=== PATIENT | female | born 1940 ===

== ENCOUNTER 2023-12-09 21:21 | Inpatient (IN) | payer MEDICARE, SELFPAY ==
--- NOTE | ~2023-12-09 | XR_ITS ---
EXAMINATION: XR ABDOMEN KUB CLINICAL INDICATION: Abdominal COMPARISON: None available. TECHNIQUE: AP view of the abdomen. FINDINGS: The bowel gas pattern is normal with no evidence of ileus or obstruction. No unusual soft tissue calcifications are noted. There is mild amount of burden feces in the rectosigmoid region. Postsurgical juwan seen in the right upper quadrant. There is dextroscoliosis of lumbar spine and multilevel degenerative changes. XR/XR KUB IMPRESSION: No acute abnormalities. Mild constipation
[2023-12-09 21:46] VITALS: BMI 28.2
[2023-12-09 22:56] VITALS: BP 147/66; PULSE 66; RESP 17; TEMP 36.2; O2SAT 95
[2023-12-09] MEDS: Acetaminophen 325 MG TABLET 650 MG PO (23:10)
--- NOTE | 2023-12-10 03:01 | PC.NURSE ---
Admission Note Chrystal Cavanaugh, 83 [id number] was past medical history of hypertension, hyperlipidemia, GERD, arthritis, hypothyroidism, and chronic leg pain was presented to ED after she was found in minimally conscious state after ingesting unknown amount and dose of oxycodone tablets as suicidal attempts triggered by her? living situation with constant pain. Patient arrived on [address] at 2135 on 12/09/23 with an admitting diagnosis of Unspecified Depressive disorder (F32.9).? Patient is alert and oriented x 4, signed CV however patient?s daughter Aylin is her HCP. Patient is calm and pleasant, compliant with admission process, reports her depression 5/10, anxiety 4/10, asymptomatic of psychiatric symptoms, denied SI/HI/AVH, contracted for the safety, ambulates with walker but gait is unsteady due to leg pain, reports her bilateral leg pain 10/10, patient has hearing deficit wears hearing aids, patient also wears reading glasses, patient reported her appetite is great, and VSS unremarkable. No visible skin issues noticed, med rec completed/provider notified/pending provider?s approval, patient takes her meds whole with water, pending unit orientation due to tiredness from long drive, and patient is being observed on 15 minutes safety check as ordered. Belongings inventoried/secured. Hospitalist consult order ordered/notified via [employer].
[2023-12-10] MEDS: traMADoL HCL 50 MG TABLET PO (03:08)
--- NOTE | 2023-12-10 04:12 | PC.NURSE ---
Admission Note Chrystal Cavanaugh, 83 [id number] with past medical history of hypertension, hyperlipidemia, GERD, arthritis, hypothyroidism, and chronic leg pain was presented to ED after she was found in minimally conscious state after ingesting unknown amount and dose of Oxycodone tablets as suicidal attempts triggered by her? living situation with constant pain. Patient arrived on [address] at 2135 on 12/09/23 with an admitting diagnosis of Unspecified Depressive disorder (F32.9).? Patient is alert and oriented x 4, signed CV however patient?s daughter Aylin is her HCP. Patient is calm and pleasant, compliant with admission process, reports her depression 5/10, anxiety 4/10, asymptomatic of psychiatric symptoms, denied SI/HI/AVH, contracted for the safety, ambulates with walker but gait is unsteady due to leg pain, reports her bilateral leg pain 10/10, patient has hearing deficit wears hearing aids, patient also wears reading glasses, and VSS unremarkable. No visible skin issues noticed, med rec completed/provider notified/pending provider?s approval, pending unit orientation due to tiredness from long drive, and patient is being observed on 5 minutes safety check as ordered. Patient is full code. Patient has only seasonal allergies.Belongings inventoried/secured. Hospitalist consult order ordered/notified via [employer].
[2023-12-10 06:18] VITALS: BMI 28.1
--- NOTE | 2023-12-10 08:54 | P.HPPS_ITS ---
[facility] Date of Service: 12/10/23 Chief Complaint: Depression Sources of Information: patient interviewed, chart reviewed and crisis/core team assessment reviewed Additional Sources of Information: collateral information gathered from the daughter- Maryjane. HPI Subjective Notes: Zepeda Warning and Conditional Voluntary Narrative: Mrs. Reyes is a 83 year-old woman with hx of MDD, alcohol use disorder who was brought via EMS to [facility] ED on 12/02/23 after daughter found her non responsive and noticed pin point pupils. Daughter Maryjane called ambulance and EMS on arrival administered narcan. Pt also reported daily alcohol use for several years. It does not appear that she was started on CIWA. In the ED, pt reported that she had intentional OD on oxycodone, about 20 tablets as suicide attempt in the context of chronic pain and feeling like she did not want to live like this anymore. CBC showed normocytic anemia, CMP without electrolyte imbalances, BUN 14, Cr. 0.8, slightly elevated CK 363. Suspected she had aspiration pneumonia on chest XR-although she was not started on antibiotics. EKG on 12/[address] abnormality, no significant changes from previous EKGs- per ED documentation. On the unit, pt presented with visible back pain affecting her ability to ambulate as well as sit in chair. She also presents as somewhat guarded and irritable. She reports she feels ashamed and embarrassed about suicide attempt. She reports hse has never had suicidal ideation in her life. She reports she only contemplated OD with oxycodone the day she had the OD. She reports she was ruminating about it all day long until she decided later at night to take about 20 tablets of oxycodone. Her daughter who lives with her found her and called EMS. Pt reports PCP has been prescribing antidepressant. She denies feeling depressed lately only in setting of chronic back pain and arthritis. Pt denies hx of VH/AH or delusions. Collateral information from daughter, Maryjane, who reports pt has been using alcohol, mostly vodka for several decades with little to no periods of sobriety. Daughter reports in the past, when pt was able to work, she was functional alcoholic. Daughter reports Mrs. Reyes has about 3-4 drinks of vodka daily. Daughter reports recently she was told by pain clinic that they were stopping cortisone injections as they were not helping as much. Physical therapy was also stopped due to sense that benefit was minimal. Daughter reports that the day the pt had intentional OD, she had telehealth appointment with her PCP who told her that he will not continue prescribing opioid medications due to pt's ongoing alcohol use disorder. In was in this setting that, pt later decided to OD on oxycodone. Past Psychiatric History: Inpt: none in the past OP: none Past medication trials: celexa. Hx of suicide attempts: denies Medical Evaluation Reviewed: Yes [facility] Medical History (Updated 12/11/23 @ 11:01 by Shahnaz Goldstein) GERD (gastroesophageal reflux disease) Arthritis Hypothyroidism HLD (hyperlipidemia) Asthma HTN (hypertension) Family History: none Social History: Pt lives with daughter. retired. . Substance History: alcohol use daily 4-6 drinks of vodka for several years Trauma History: not disclosed Diagnostics Vital Signs (24Hr): Vital Signs - 24 hr 12/09/23 22:56 Temperature 97.2 F Pulse Rate 66 Respiratory Rate 17 Blood Pressure 147/66 H Pulse Oximetry 95 Oxygen Delivery Method Room Air BMI result Body Mass Index 28.1 Labs 12/10/23 08:58 Meds/Allergies Meds Home Medications ?Medication ?Instructions ?Recorded ?Confirmed ?Type albuterol sulfate 90 mcg/actuation 2 puff inhalation Q4-5H PRN 12/09/23 12/10/23 History aerosol inhaler Shortness Of Breath Or Wheezing amlodipine 2.5 mg tablet 2.5 mg PO DAILY 12/09/23 12/10/23 History atorvastatin 40 mg tablet 40 mg PO DAILY 12/09/23 12/10/23 History citalopram 20 mg tablet 20 mg PO QAM 12/09/23 12/10/23 History fluticasone furoate 100 1 ea inhalation DAILY 12/09/23 12/10/23 History mcg-vilanterol 25 mcg/dose inhalation powder (Breo Ellipta) gabapentin 300 mg capsule 600 mg PO BID 12/09/23 12/10/23 History levothyroxine 100 mcg tablet 100 mcg PO QAM 12/09/23 12/10/23 History omeprazole 20 mg capsule,delayed 20 mg PO DAILY 12/09/23 12/10/23 History release ondansetron 4 mg disintegrating 4 mg PO Q8H PRN nausea 12/09/23 12/10/23 History tablet oxycodone 5 mg tablet 5 mg PO Q6H PRN pain 12/09/23 12/10/23 History pantoprazole 40 mg tablet,delayed 40 mg PO DAILY 12/09/23 12/10/23 History release tramadol 50 mg tablet 50 mg PO Q6H PRN pain 12/09/23 12/10/23 History Allergies Allergies Allergy/AdvReac Type Severity Reaction Status Date / Time Seasonal Allergies Allergy Sneezing Verified 12/09/23 22:37 Mental Status Exam Mental Status Exam Narrative: Appearance: wearing hospital gown, in NAD behavior: guarded and irritable Psychomotor: no agitation or retardation noted Speech: mostly clear, normal rate/rhythm/volume, spontaneous TP: mostly linear TC: complaining of pain and wanting medication for it Mood: in pain and tired Affect: irritable and in pain SI: adamantly denies HI: none VH/AH: none Delusions: none Insight/judgment: poor x 2. Memory/cog: alert, oriented x 3. pending MOCA. Assessment & Plan Assessment & Plan (1) MDD (major depressive disorder), recurrent episode, moderate: Status: Acute Code(s): F33.1 - Major depressive disorder, recurrent, moderate (2) Alcohol use disorder, severe, dependence: Status: Acute Code(s): F10.20 - Alcohol dependence, uncomplicated Plan Mrs. Reyes is a 83 year-old woman with hx of MDD, alcohol use disorder who was brought via EMS to [facility] ED after daughter found her unresponsive and noted she had pin point pupil. EMS administered narcan at the home with good effect. She was transported to ED. In the ED, CBC with normocytic anemia, no leukocitosys. CMP slitghly low potassium, corrected. No ekg abnormalities or changes. It does not seem like pt was started on a CIWA while in the ED- it has been by now 9 days since last drink. continue thiamine. It appears that while at the other hospital, she was switched from celexa to cymbalta. We discussed risks, benefits and alternative treatment options. Daughter and pt asked about CSS treatment after psychiatric stabilization. We also discussed need to coordinate pain management- despite alcohol use status and harm reduction approach. PLAN 1. Admit to S1, CV, 15 minutes checks for safety 2. continue cymbalta- plan to titrate 30mg po BID. 3. aftercare planning. Patient educated on: diagnosis, medication risk/benefits and substance abuse Reason for continued inpatient stay Substantial Risk for: harm to self Statement Statement: I have reviewed the history and physical and performed a pertinent examination on my patient. No changes have occurred unless specified. If the History and Physical was not performed prior to admission, the Hospitalist's service will be consulted for completing the admission physical. Time Spent With Patient Time: Total time managing care of this patient today ____ minutes.
[2023-12-10 09:34] LABS: Estimated Average Glucose 111 mg/dL; Hemoglobin A1c % 5.5 % (<6.0)
[2023-12-10 09:42] LABS: Alanine Aminotransferase 23 U/L (0-31); Albumin Level 3.3 g/dL (3.5-5.0); Alkaline Phosphatase 79 U/L (39-117); Anion Gap 9 (12-20); Aspartate Amino Transferase 19 U/L (5-31); Bilirubin Total 0.2 mg/dL (0.0-1.0); Blood Urea Nitrogen 10 mg/dL (9-16); Calcium 8.5 mg/dL (8.4-10.2); Carbon Dioxide 26 mmol/L (22-29); Chloride 108 mmol/L (96-108); Cholesterol 127 mg/dL (<200); Creatinine Clr Calc Pharmacy 50.8; Estimated Glomerular Filt Rate > 60; Glucose Fasting 92 mg/dL (60-99); HDL Cholesterol 50 mg/dL (>40); LDL Cholesterol Calculated 48 mg/dL (<100); Potassium 4.1 mmol/L (3.3-5.1); Sodium 139 mmol/L (135-145); Total Protein 5.6 g/dL (6.5-8.0); Triglycerides 149 mg/dL (<150)
[2023-12-10 11:00] VITALS: BP 157/70; PULSE 80; TEMP 36.6; O2SAT 99
[2023-12-10] MEDS: Gabapentin 300 MG CAPSULE 600 MG PO ×2 (11:00→20:42)
[2023-12-10] MEDS: amLODIPine Besylate 2.5 MG TABLET PO (11:01)
[2023-12-10] MEDS: Escitalopram Oxalate 10 MG TABLET PO (11:02)
[2023-12-10] MEDS: Levothyroxine Sodium 100 MCG TABLET PO (11:02)
[2023-12-10] MEDS: Omeprazole 20 MG CAPSULE.DR PO (11:02)
[2023-12-10] MEDS: oxyCODONE HCl Immed Release 5 MG TABLET PO ×2 (11:03→20:42)
--- NOTE | 2023-12-10 13:33 | P.CONHOSP_ITS ---
History of Present Illness Data of Consult Service Date: 12/10/23 Primary Care Provider: Unknown Physician HPI Reason for consult: Admission H&P Pt is a 83-year-old female with a PMH significant for?mild intermittent asthma, HTN, HLD, hypothyroidism, arthritis, GERD, who is [facility] after being found minimally responsive at home by daughter. Patient apparently had increasing depression with SI and intentionally overdosed on oxycodone. Responded well to Narcan in the field. Patient apparently has chronic musculoskeletal pain and did not want to live any longer. Medical consult for admission H&P. ?Pt unavailable at time of interview and examination. Review of medical records indicates pt had no acute medical complaints at time of presentation to the ED, though endorsed chronic musculoskeletal and joint pain. Labs reviewed, grossly unremarkable. Vitals indicate mild hypertension up to 157/70, otherwise WNL. Review of Systems 2 Review of Systems: Pt unavailable for interview and exam ON LICENSE OF [facility] Medical History (Updated 12/10/23 @ 14:15 by GITA Allred) GERD (gastroesophageal reflux disease) Arthritis Hypothyroidism HLD (hyperlipidemia) Asthma HTN (hypertension) Social History Household Members: Family Housing: House Do you presently have visiting nurse or other home services: No Patient Tobacco Use Status: Never used Tobacco Smoked in Last 30 Days: No Patient Interested in Nicotine Replacement: No Patient Given Instructions on How to Stop Smoking: No Second Hand Smoke Exposure: No Use of substances other than those prescribed or required for medical reasons: No Currently Displaying Signs/Symptoms of Drug Intoxication Withdrawal: No Have you been hit, kicked, punched, or otherwise hurt by someone within the past year? If so, by whom?: No Do you feel safe in your current relationship?: No Is there a partner from a previous relationship who is making you feel unsafe now?: No Are you made to feel afraid or neglected: No Advance Directives: No Advance Directives Information Provided: No Do you have thoughts of harming others: None Do you have a plan to hurt others: No Plan Recently lost weight without trying: No Eating poorly because of decreased appetite: No Nutrition Risks: No Nutritional Risk Patient : No : No Poor oral hygiene: No Meds Allergies Allergy/AdvReac Type Severity Reaction Status Date / Time Seasonal Allergies Allergy Sneezing Verified 12/09/23 22:37 Active Medications: Current Medications Acetaminophen (Acetaminophen 325 Mg Tablet) 650 mg PO Q6H PRN PRN Reason: Headache/Pain Mild Scale (1-3) Last Admin: 12/09/23 23:10 Dose: 650 mg Al Hydroxide/Mg Hydroxide (Magnesium Hydrox/Alum Hydrox 30 Ml Oral.Susp) 30 ml PO Q6H PRN PRN Reason: Heartburn/Nausea Albuterol Sulfate (Albuterol Sulfate 90 Mcg 8 Gm Inhaler) 2 puff INHALE Q4H PRN PRN Reason: Shortness Of Breath Or Wheezing Amlodipine Besylate (Amlodipine Besylate 2.5 Mg Tablet) 2.5 mg PO DAILY [facility]; Protocol Last Admin: 12/10/23 11:01 Dose: 2.5 mg Atorvastatin Calcium (Atorvastatin Calcium 40 Mg Tablet) 40 mg PO DAILY [facility] Escitalopram Oxalate (Escitalopram Oxalate 10 Mg Tablet) 10 mg PO DAILY [facility] Last Admin: 12/10/23 11:02 Dose: 10 mg Fluticasone/Vilanterol (Fluticasone/Vilanterol 100/25 Blst.W.Dev) 1 puff INHALE RDAILY [facility] Last Admin: 12/10/23 11:59 Dose: Not Given Gabapentin (Gabapentin 300 Mg Capsule) 600 mg PO BID [facility] Last Admin: 12/10/23 11:00 Dose: 600 mg Levothyroxine Sodium (Levothyroxine Sodium 100 Mcg Tablet) 100 mcg PO DAILY [facility] Last Admin: 12/10/23 11:02 Dose: 100 mcg Magnesium Hydroxide (Milk Of Magnesia 30 Ml Oral.Susp) 30 ml PO DAILY PRN PRN Reason: Constipation Nicotine Polacrilex (Nicotine Polacrilex 2 Mg Gum) 4 mg BUCCAL Q2H PRN PRN Reason: Nicotine Cravings Olanzapine (Olanzapine 2.5 Mg Tablet) 2.5 mg PO TID PRN PRN Reason: agitation Omeprazole (Omeprazole 20 Mg Capsule.Dr) 20 mg PO DAILY [facility] Last Admin: 12/10/23 11:02 Dose: 20 mg Oxycodone HCl (Oxycodone Hcl Immed Release 5 Mg Tablet) 5 mg PO Q6H PRN PRN Reason: moderate, pain Last Admin: 12/10/23 11:03 Dose: 5 mg Trazodone HCl (Trazodone Hcl 25 Mg Halftab) 25 mg PO BEDTIME PRN PRN Reason: Insomnia Home Medications Medication Instructions Recorded Confirmed Last Taken Type albuterol sulfate 90 mcg/actuation 2 puff inhalation Q4-5H PRN 12/09/23 12/10/23 Unknown History aerosol inhaler Shortness Of Breath Or Wheezing amlodipine 2.5 mg tablet 2.5 mg PO DAILY 12/09/23 12/10/23 Unknown History atorvastatin 40 mg tablet 40 mg PO DAILY 12/09/23 12/10/23 Unknown History citalopram 20 mg tablet 20 mg PO QAM 12/09/23 12/10/23 Unknown History fluticasone furoate 100 1 ea inhalation DAILY 12/09/23 12/10/23 Unknown History mcg-vilanterol 25 mcg/dose inhalation powder (Breo Ellipta) gabapentin 300 mg capsule 600 mg PO BID 12/09/23 12/10/23 Unknown History levothyroxine 100 mcg tablet 100 mcg PO QAM 12/09/23 12/10/23 Unknown History omeprazole 20 mg capsule,delayed 20 mg PO DAILY 12/09/23 12/10/23 Unknown History release ondansetron 4 mg disintegrating 4 mg PO Q8H PRN nausea 12/09/23 12/10/23 Unknown History tablet oxycodone 5 mg tablet 5 mg PO Q6H PRN pain 12/09/23 12/10/23 Unknown History pantoprazole 40 mg tablet,delayed 40 mg PO DAILY 12/09/23 12/10/23 Unknown History release tramadol 50 mg tablet 50 mg PO Q6H PRN pain 12/09/23 12/10/23 Unknown History Physical Exam 2 Vital Signs and Narrative: Vital Signs: Last Vital Signs Temp 97.9 F 12/10/23 11:00 Pulse 80 12/10/23 11:00 Resp 17 12/09/23 22:56 BP 157/70 H 12/10/23 11:00 Pulse Ox 99 12/10/23 11:00 O2 Del Method Room Air 12/10/23 11:00 BMI result Body Mass Index 28.1 Pt unavailable for interview and exam Results Labs 12/10/23 08:58 Labs: Laboratory Results - last 24 hr 12/10/23 08:58 Anion Gap 9 L Estim Creat Clear Calc 50.8 Estimated GFR > 60 Fasting Glucose 92 Estimat Average Glucose 111 Hemoglobin A1c % 5.5 Calcium 8.5 Total Bilirubin 0.2 AST 19 ALT 23 Alkaline Phosphatase 79 Total Protein 5.6 L Albumin 3.3 L Triglycerides 149 Cholesterol 127 LDL Cholesterol, Calc 48 HDL Cholesterol 50 Assessment and Plan (1) Medical clearance for psychiatric admission: Status: Acute Plan Pt is a 83-year-old female with a PMH significant for?mild intermittent asthma, HTN, HLD, hypothyroidism, arthritis, GERD, who [facility] after being found minimally responsive at home by daughter. Patient apparently had increasing depression with SI and intentionally overdosed on oxycodone. Responded well to Narcan in the field. Patient apparently has chronic musculoskeletal pain and did not want to live any longer. Medical consult for admission H&P. ?Pt unavailable at time of interview and examination. Mood disorder Plan as per Psychiatry HTN Continue amlodipine HLD Continue atorvastatin Asthma Continue home inhalers Hypothyroidism Continue levothyroxine Chronic musculoskeletal/arthritis pain Continue home analgesics GERD Continue omeprazole Thank you for allowing us to participate in the care of this patient. According to chart review pt has no acute medical complaints. Will sign off at this time. Please re-consult if any acute complaints or issues arise.
[2023-12-10 18:00] VITALS: BP 141/69; PULSE 81; RESP 16; TEMP 36.3; O2SAT 96
[2023-12-10] MEDS: traZODone HCL 25 MG HALFTAB PO (20:42)
[2023-12-10] MEDS: Albuterol Sulfate 90 MCG 8 GM INHALER 2 PUFF INHALE (20:42)
[2023-12-11 07:00] VITALS: BMI 28.1
[2023-12-11 08:29] VITALS: BP 174/74; PULSE 84; RESP 18; TEMP 36.4; O2SAT 96
[2023-12-11] MEDS: Fluticasone/Vilanterol 100/25 BLST.W.DEV 1 PUFF INHALE (08:44)
[2023-12-11] MEDS: Gabapentin 300 MG CAPSULE 600 MG PO ×3 (08:45→20:55)
[2023-12-11] MEDS: oxyCODONE HCl Immed Release 5 MG TABLET PO ×3 (08:45→20:56)
[2023-12-11] MEDS: Atorvastatin Calcium 40 MG TABLET PO (08:46)
[2023-12-11] MEDS: Levothyroxine Sodium 100 MCG TABLET PO (08:46)
[2023-12-11] MEDS: Omeprazole 20 MG CAPSULE.DR PO (08:46)
[2023-12-11] MEDS: Escitalopram Oxalate 10 MG TABLET PO (08:46)
[2023-12-11] MEDS: amLODIPine Besylate 2.5 MG TABLET PO (08:46)
[2023-12-11] MEDS: Thiamine HCL 100 MG TABLET PO (09:39)
[2023-12-11] MEDS: DULoxetine HCl 30 MG CAPSULE.DR PO ×2 (11:17→17:04)
--- NOTE | 2023-12-11 11:54 | HO.PSYCHPN ---
Subjective Subjective Date of Service: 12/11/23 Reason For Visit: Depression Subjective Notes: Conditional Voluntary Interim History: Pt slept through the night. She continues to denied SI/HI. She reports I'm not drinking again. We discussed she has been using alcohol for a very long time- chances of relapse are high. We discussed that treatment team will be reaching out to her PCP as we have to come up with viable plan to treat her pain independent of her alcohol use and with a harm reduction approach. She denies any cravings to use alcohol. No psychosis or delusion noted. Her BP slightly elevated today SBP 170. we discussed maybe considering taper of clonazepam, although it has been 9 days since last drink, no significant alcohol withdrawal symptoms noted but it also seems like she did not receive any benzos at previous hospital Review of Systems Review of Systems No SOB NO chest pain No alcoholic hallucinosis back pain No headache Mental Status Exam Mental Status Exam Narrative: Appearance: wearing hospital gown, in NAD behavior: guarded and irritable Psychomotor: no agitation or retardation noted Speech: mostly clear, normal rate/rhythm/volume, spontaneous TP: mostly linear TC: complaining of pain and wanting medication for it Mood: in pain and tired Affect: irritable and in pain SI: adamantly denies HI: none VH/AH: none Delusions: none Insight/judgment: poor x 2. Memory/cog: alert, oriented x 3. pending MOCA. Diagnostics Vital Signs (24Hr): Vital Signs - 24 hr 12/10/23 18:00 12/11/23 08:29 Temperature 97.3 F 97.5 F Pulse Rate 81 84 Respiratory Rate 16 18 Blood Pressure 141/69 H 174/74 H Pulse Oximetry 96 96 Oxygen Delivery Method Room Air Room Air BMI result Body Mass Index 28.1 Labs 12/10/23 08:58 Labs: Laboratory Results - last 48 hr 12/10/23 08:58 Sodium 139 Potassium 4.1 Chloride 108 Carbon Dioxide 26 Anion Gap 9 L BUN 10 Creatinine 0.74 Estim Creat Clear Calc 50.8 Estimated GFR > 60 Fasting Glucose 92 Estimat Average Glucose 111 Hemoglobin A1c % 5.5 Calcium 8.5 Total Bilirubin 0.2 AST 19 ALT 23 Alkaline Phosphatase 79 Total Protein 5.6 L Albumin 3.3 L Triglycerides 149 Cholesterol 127 LDL Cholesterol, Calc 48 HDL Cholesterol 50 Medications Medications Current Medications Acetaminophen (Acetaminophen 325 Mg Tablet) 650 mg PO Q6H PRN PRN Reason: Headache/Pain Mild Scale (1-3) Last Admin: 12/09/23 23:10 Dose: 650 mg Al Hydroxide/Mg Hydroxide (Magnesium Hydrox/Alum Hydrox 30 Ml Oral.Susp) 30 ml PO Q6H PRN PRN Reason: Heartburn/Nausea Albuterol Sulfate (Albuterol Sulfate 90 Mcg 8 Gm Inhaler) 2 puff INHALE Q4H PRN PRN Reason: Shortness Of Breath Or Wheezing Last Admin: 12/10/23 20:42 Dose: 2 puff Amlodipine Besylate (Amlodipine Besylate 2.5 Mg Tablet) 2.5 mg PO DAILY [facility]; Protocol Last Admin: 12/11/23 08:46 Dose: 2.5 mg Atorvastatin Calcium (Atorvastatin Calcium 40 Mg Tablet) 40 mg PO DAILY [facility] Last Admin: 12/11/23 08:46 Dose: 40 mg Duloxetine HCl (Duloxetine Hcl 30 Mg Capsule.) 30 mg PO BID@0800,1700 [facility] Last Admin: 12/11/23 11:17 Dose: 30 mg Fluticasone/Vilanterol (Fluticasone/Vilanterol 100/25 Blst.W.Dev) 1 puff INHALE RDAILY [facility] Last Admin: 12/11/23 08:44 Dose: 1 puff Gabapentin (Gabapentin 300 Mg Capsule) 600 mg PO BID [facility] Last Admin: 12/11/23 08:45 Dose: 600 mg Levothyroxine Sodium (Levothyroxine Sodium 100 Mcg Tablet) 100 mcg PO DAILY [facility] Last Admin: 12/11/23 08:46 Dose: 100 mcg Magnesium Hydroxide (Milk Of Magnesia 30 Ml Oral.Susp) 30 ml PO DAILY PRN PRN Reason: Constipation Nicotine Polacrilex (Nicotine Polacrilex 2 Mg Gum) 4 mg BUCCAL Q2H PRN PRN Reason: Nicotine Cravings Olanzapine (Olanzapine 2.5 Mg Tablet) 2.5 mg PO TID PRN PRN Reason: agitation Omeprazole (Omeprazole 20 Mg Capsule.) 20 mg PO DAILY [facility] Last Admin: 12/11/23 08:46 Dose: 20 mg Oxycodone HCl (Oxycodone Hcl Immed Release 5 Mg Tablet) 5 mg PO TID [facility] Thiamine HCl (Thiamine Hcl 100 Mg Tablet) 100 mg PO DAILY [facility] Last Admin: 12/11/23 09:39 Dose: 100 mg Trazodone HCl (Trazodone Hcl 25 Mg Halftab) 25 mg PO BEDTIME PRN PRN Reason: Insomnia Last Admin: 12/10/23 20:42 Dose: 25 mg Allergies Allergies Allergy/AdvReac Type Severity Reaction Status Date / Time Seasonal Allergies Allergy Sneezing Verified 12/09/23 22:37 Assessment & Plan Assessment & Plan (1) MDD (major depressive disorder), recurrent episode, moderate: Status: Acute Code(s): F33.1 - Major depressive disorder, recurrent, moderate (2) Alcohol use disorder, severe, dependence: Status: Acute Code(s): F10.20 - Alcohol dependence, uncomplicated Plan Mrs. Reyes is a 83 year-old woman with hx of MDD, alcohol use disorder who was brought via EMS to [facility] ED after daughter found her unresponsive and noted she had pin point pupil. EMS administered narcan at the home with good effect. She was transported to ED. In the ED, CBC with normocytic anemia, no leukocitosys. CMP slitghly low potassium, corrected. No ekg abnormalities or changes. It does not seem like pt was started on a CIWA while in the ED- it has been by now 9 days since last drink. continue thiamine. It appears that while at the other hospital, she was switched from celexa to cymbalta. We discussed risks, benefits and alternative treatment options. Daughter and pt asked about CSS treatment after psychiatric stabilization. We also discussed need to coordinate pain management- despite alcohol use status and harm reduction approach. PLAN - continue cymbalta 30mg po BID- titrate as appropriate. - increase gabapentin to 600mg po TID- monitor over sedation -schedule oxycodone 5mg po TID. discussion pending with her PCP to discuss residential plan to manage chronic pain. Reason for continued inpatient stay Substantial Risk for: inability to function Time Spent With Patient Time: Total time managing care of this patient today ____ minutes.
[2023-12-11] MEDS: Acetaminophen 325 MG TABLET 650 MG PO (13:23)
[2023-12-11 18:00] VITALS: BP 133/65; PULSE 88; RESP 18; TEMP 36.3; O2SAT 93
[2023-12-12 06:00] VITALS: BP 157/74; PULSE 72; RESP 18; TEMP 36.8; O2SAT 95
[2023-12-12] MEDS: oxyCODONE HCl Immed Release 5 MG TABLET PO ×3 (09:17→20:43)
[2023-12-12] MEDS: Gabapentin 300 MG CAPSULE 600 MG PO ×3 (09:17→20:43)
[2023-12-12] MEDS: Fluticasone/Vilanterol 100/25 BLST.W.DEV 1 PUFF INHALE (09:17)
[2023-12-12] MEDS: Atorvastatin Calcium 40 MG TABLET PO (09:18)
[2023-12-12] MEDS: Omeprazole 20 MG CAPSULE.DR PO (09:18)
[2023-12-12] MEDS: DULoxetine HCl 30 MG CAPSULE.DR PO ×2 (09:18→16:12)
[2023-12-12] MEDS: Thiamine HCL 100 MG TABLET PO (09:18)
[2023-12-12] MEDS: Levothyroxine Sodium 100 MCG TABLET PO (09:19)
[2023-12-12] MEDS: amLODIPine Besylate 2.5 MG TABLET PO (09:19)
[2023-12-12] MEDS: Acetaminophen 325 MG TABLET 650 MG PO ×2 (12:24→22:07)
--- NOTE | 2023-12-12 12:26 | P.PNPSI_ITS ---
Subjective Subjective Date of Service: 12/12/23 Reason For Visit: Depression Subjective Notes: Conditional Voluntary Interim History: Pt reports she has pain all over her body. the gabapentin helps a little but she just took tylenol because she felt the pain increase and she wasn't' due for gabapentin again yet. she slept through the night. She continues to deny SI/HI. She reports I'm not drinking again. We discussed she has been using alcohol for a very long time- chances of relapse are high. We discussed that treatment team will be reaching out to her PCP as we have to come up with viable plan to treat her pain independent of her alcohol use and with a harm reduction approach. She denies any cravings to use alcohol. No psychosis or delusion noted. Her BP slightly elevated today SBP 170. we discussed maybe considering taper of clonazepam, although it has been 9 days since last drink, no significant alcohol withdrawal symptoms noted but it also seems like she did not receive any benzos at previous hospital Medication Compliance: Yes Side effects from medications: No Attending Groups: Yes Review of Systems Acute medical concerns: Yes pain Medical Review of Systems: unchanged Review of Systems Review of Systems No SOB NO chest pain No alcoholic hallucinosis back pain No headache Mental Status Exam Mental Status Exam Narrative: Appearance: casually dressed; in NAD behavior: mildly irritable Psychomotor: no agitation or retardation noted Speech: mostly clear, normal rate/rhythm/volume, spontaneous TP: mostly linear TC: complaining of pain and wanting medication for it Mood: in pain and tired Affect: irritable and in pain SI: adamantly denies HI: none VH/AH: none Delusions: none Insight/judgment: poor x 2. Memory/cog: alert, oriented x 3. pending MOCA. Diagnostics Vital Signs (24Hr): Vital Signs - 24 hr 12/11/23 18:00 12/12/23 06:00 Temperature 97.4 F 98.2 F Pulse Rate 88 72 Respiratory Rate 18 18 Blood Pressure 133/65 157/74 H Pulse Oximetry 93 95 Oxygen Delivery Method Room Air Room Air BMI result Body Mass Index 28.1 Labs 12/10/23 08:58 Medications Medications Current Medications Acetaminophen (Acetaminophen 325 Mg Tablet) 650 mg PO Q6H PRN PRN Reason: Headache/Pain Mild Scale (1-3) Last Admin: 12/12/23 12:24 Dose: 650 mg Al Hydroxide/Mg Hydroxide (Magnesium Hydrox/Alum Hydrox 30 Ml Oral.Susp) 30 ml PO Q6H PRN PRN Reason: Heartburn/Nausea Albuterol Sulfate (Albuterol Sulfate 90 Mcg 8 Gm Inhaler) 2 puff INHALE Q4H PRN PRN Reason: Shortness Of Breath Or Wheezing Last Admin: 12/10/23 20:42 Dose: 2 puff Amlodipine Besylate (Amlodipine Besylate 2.5 Mg Tablet) 2.5 mg PO DAILY [facility]; Protocol Last Admin: 12/12/23 09:19 Dose: 2.5 mg Atorvastatin Calcium (Atorvastatin Calcium 40 Mg Tablet) 40 mg PO DAILY [facility] Last Admin: 12/12/23 09:18 Dose: 40 mg Duloxetine HCl (Duloxetine Hcl 30 Mg Capsule.) 30 mg PO BID@0800,1700 [facility] Last Admin: 12/12/23 09:18 Dose: 30 mg Fluticasone/Vilanterol (Fluticasone/Vilanterol 100/25 Blst.W.Dev) 1 puff INHALE RDAILY [facility] Last Admin: 12/12/23 09:17 Dose: 1 puff Gabapentin (Gabapentin 300 Mg Capsule) 600 mg PO TID [facility] Last Admin: 12/12/23 09:17 Dose: 600 mg Levothyroxine Sodium (Levothyroxine Sodium 100 Mcg Tablet) 100 mcg PO DAILY [facility] Last Admin: 12/12/23 09:19 Dose: 100 mcg Magnesium Hydroxide (Milk Of Magnesia 30 Ml Oral.Susp) 30 ml PO DAILY PRN PRN Reason: Constipation Nicotine Polacrilex (Nicotine Polacrilex 2 Mg Gum) 4 mg BUCCAL Q2H PRN PRN Reason: Nicotine Cravings Olanzapine (Olanzapine 2.5 Mg Tablet) 2.5 mg PO TID PRN PRN Reason: agitation Omeprazole (Omeprazole 20 Mg Capsule.) 20 mg PO DAILY [facility] Last Admin: 12/12/23 09:18 Dose: 20 mg Oxycodone HCl (Oxycodone Hcl Immed Release 5 Mg Tablet) 5 mg PO TID [facility] Last Admin: 12/12/23 09:17 Dose: 5 mg Thiamine HCl (Thiamine Hcl 100 Mg Tablet) 100 mg PO DAILY [facility] Last Admin: 12/12/23 09:18 Dose: 100 mg Trazodone HCl (Trazodone Hcl 25 Mg Halftab) 25 mg PO BEDTIME PRN PRN Reason: Insomnia Last Admin: 12/10/23 20:42 Dose: 25 mg Allergies Allergies Allergy/AdvReac Type Severity Reaction Status Date / Time Seasonal Allergies Allergy Sneezing Verified 12/09/23 22:37 Assessment & Plan Assessment & Plan (1) MDD (major depressive disorder), recurrent episode, moderate: Status: Acute Code(s): F33.1 - Major depressive disorder, recurrent, moderate (2) Alcohol use disorder, severe, dependence: Status: Acute Code(s): F10.20 - Alcohol dependence, uncomplicated Plan Mrs. Reyes is a 83 year-old woman with hx of MDD, alcohol use disorder who was brought via EMS to [facility] ED after daughter found her unresponsive and noted she had pin point pupil. EMS administered narcan at the home with good effect. She was transported to ED. In the ED, CBC with normocytic anemia, no leukocitosys. CMP slighyly low potassium, corrected. No ekg abnormalities or changes. It does not seem like pt was started on a CIWA while in the ED- it has been by now 9 days since last drink. continue thiamine. It appears that while at the other hospital, she was switched from celexa to cymbalta. We discussed risks, benefits and alternative treatment options. Daughter and pt asked about CSS treatment after psychiatric stabilization. We also discussed need to coordinate pain management- despite alcohol use status and harm reduction approach. Pt tolerating the increase in gabapentin from BID to TID on 12/10. 12/11 Continue Treatment Plan: - continue cymbalta 30mg po BID- titrate as appropriate. - increase gabapentin to 600mg po TID- monitor over sedation -schedule oxycodone 5mg po TID. discussion pending with her PCP to discuss correction plan to manage chronic pain. Patient educated on: diagnosis, medication risk/benefits, substance abuse, therapeutic strategies and medical condition Informed Consent: understands Reason for continued inpatient stay Substantial Risk for: harm to self, inability to function and rapid decompensation Time Spent With Patient Time: Total time managing care of this patient today __30__ minutes.
[2023-12-12 18:00] VITALS: BP 141/72; PULSE 72; RESP 18; TEMP 36.6; O2SAT 97
[2023-12-12] MEDS: traZODone HCL 25 MG HALFTAB PO (22:07)
[2023-12-13 06:00] VITALS: BP 166/71; PULSE 84; RESP 18; TEMP 36.7; O2SAT 96
[2023-12-13] MEDS: Fluticasone/Vilanterol 100/25 BLST.W.DEV 1 PUFF INHALE (08:58)
[2023-12-13] MEDS: Gabapentin 300 MG CAPSULE 600 MG PO ×3 (08:58→20:53)
[2023-12-13] MEDS: Levothyroxine Sodium 100 MCG TABLET PO (08:59)
[2023-12-13] MEDS: Atorvastatin Calcium 40 MG TABLET PO (08:59)
[2023-12-13] MEDS: Thiamine HCL 100 MG TABLET PO (08:59)
[2023-12-13] MEDS: amLODIPine Besylate 2.5 MG TABLET PO (08:59)
[2023-12-13] MEDS: oxyCODONE HCl Immed Release 5 MG TABLET PO ×3 (08:59→20:54)
[2023-12-13] MEDS: Omeprazole 20 MG CAPSULE.DR PO (09:00)
--- NOTE | 2023-12-13 10:28 | HO.PSYCHPN ---
Subjective Subjective Date of Service: 12/13/23 Reason For Visit: Depression Subjective Notes: Conditional Voluntary Interim History: met with patient. Discussed with Nursing. Eating breakfast. Attending the ADLs. Overall patient reports that she is doing okay. No acute concerns. Mood okay. No medication concerns. Medication Compliance: Yes Side effects from medications: No Attending Groups: Intermittent Review of Systems Acute medical concerns: No Review of Systems Review of Systems No acute changes Mental Status Exam Mental Status Exam Narrative: Appearance: casually dressed; in NAD behavior: mildly irritable Psychomotor: no agitation or retardation noted Speech: mostly clear, normal rate/rhythm/volume, spontaneous TP: mostly linear TC: complaining of pain and wanting medication for it Mood: in pain and tired Affect: irritable and in pain SI: adamantly denies HI: none VH/AH: none Delusions: none Insight/judgment: poor x 2. Memory/cog: alert, oriented x 3. pending MOCA. Diagnostics Vital Signs (24Hr): Vital Signs - 24 hr 12/12/23 18:00 12/13/23 06:00 Temperature 97.8 F 98.1 F Pulse Rate 72 84 Respiratory Rate 18 18 Blood Pressure 141/72 H 166/71 H Pulse Oximetry 97 96 Oxygen Delivery Method Room Air Room Air BMI result Body Mass Index 28.1 Labs 12/10/23 08:58 Medications Medications Current Medications Acetaminophen (Acetaminophen 325 Mg Tablet) 650 mg PO Q6H PRN PRN Reason: Headache/Pain Mild Scale (1-3) Last Admin: 12/12/23 22:07 Dose: 650 mg Al Hydroxide/Mg Hydroxide (Magnesium Hydrox/Alum Hydrox 30 Ml Oral.Susp) 30 ml PO Q6H PRN PRN Reason: Heartburn/Nausea Albuterol Sulfate (Albuterol Sulfate 90 Mcg 8 Gm Inhaler) 2 puff INHALE Q4H PRN PRN Reason: Shortness Of Breath Or Wheezing Last Admin: 12/10/23 20:42 Dose: 2 puff Amlodipine Besylate (Amlodipine Besylate 2.5 Mg Tablet) 2.5 mg PO DAILY [facility]; Protocol Last Admin: 12/13/23 08:59 Dose: 2.5 mg Atorvastatin Calcium (Atorvastatin Calcium 40 Mg Tablet) 40 mg PO DAILY [facility] Last Admin: 12/13/23 08:59 Dose: 40 mg Duloxetine HCl (Duloxetine Hcl 30 Mg Capsule.Dr) 30 mg PO BID@0800,1700 [facility] Last Admin: 12/12/23 16:12 Dose: 30 mg Fluticasone/Vilanterol (Fluticasone/Vilanterol 100/25 Blst.W.Dev) 1 puff INHALE RDAILY [facility] Last Admin: 12/13/23 08:58 Dose: 1 puff Gabapentin (Gabapentin 300 Mg Capsule) 600 mg PO TID [facility] Last Admin: 12/13/23 08:58 Dose: 600 mg Levothyroxine Sodium (Levothyroxine Sodium 100 Mcg Tablet) 100 mcg PO DAILY [facility] Last Admin: 12/13/23 08:59 Dose: 100 mcg Magnesium Hydroxide (Milk Of Magnesia 30 Ml Oral.Susp) 30 ml PO DAILY PRN PRN Reason: Constipation Nicotine Polacrilex (Nicotine Polacrilex 2 Mg Gum) 4 mg BUCCAL Q2H PRN PRN Reason: Nicotine Cravings Olanzapine (Olanzapine 2.5 Mg Tablet) 2.5 mg PO TID PRN PRN Reason: agitation Omeprazole (Omeprazole 20 Mg Capsule.) 20 mg PO DAILY [facility] Last Admin: 12/13/23 09:00 Dose: 20 mg Oxycodone HCl (Oxycodone Hcl Immed Release 5 Mg Tablet) 5 mg PO TID [facility] Last Admin: 12/13/23 08:59 Dose: 5 mg Thiamine HCl (Thiamine Hcl 100 Mg Tablet) 100 mg PO DAILY [facility] Last Admin: 12/13/23 08:59 Dose: 100 mg Trazodone HCl (Trazodone Hcl 25 Mg Halftab) 25 mg PO BEDTIME PRN PRN Reason: Insomnia Last Admin: 12/12/23 22:07 Dose: 25 mg Allergies Allergies Allergy/AdvReac Type Severity Reaction Status Date / Time Seasonal Allergies Allergy Sneezing Verified 12/09/23 22:37 Assessment & Plan Assessment & Plan (1) MDD (major depressive disorder), recurrent episode, moderate: Status: Acute Code(s): F33.1 - Major depressive disorder, recurrent, moderate (2) Alcohol use disorder, severe, dependence: Status: Acute Code(s): F10.20 - Alcohol dependence, uncomplicated Plan Mrs. Reyes is a 83 year-old woman with hx of MDD, alcohol use disorder who was brought via EMS to [facility] ED after daughter found her unresponsive and noted she had pin point pupil. EMS administered narcan at the home with good effect. She was transported to ED. In the ED, CBC with normocytic anemia, no leukocitosys. CMP slighyly low potassium, corrected. No ekg abnormalities or changes. It does not seem like pt was started on a CIWA while in the ED- it has been by now 9 days since last drink. continue thiamine. It appears that while at the other hospital, she was switched from celexa to cymbalta. We discussed risks, benefits and alternative treatment options. Daughter and pt asked about CSS treatment after psychiatric stabilization. We also discussed need to coordinate pain management- despite alcohol use status and harm reduction approach. Pt tolerating the increase in gabapentin from BID to TID on 12/10. 12/11 Continue Treatment Plan: - continue cymbalta 30mg po BID- titrate as appropriate. - increase gabapentin to 600mg po TID- monitor over sedation -schedule oxycodone 5mg po TID. discussion pending with her PCP to discuss correction plan to manage chronic pain. 12/12: no changes Reason for continued inpatient stay Substantial Risk for: rapid decompensation Time Spent With Patient Time: Total time managing care of this patient today ____ minutes.
[2023-12-13] MEDS: DULoxetine HCl 30 MG CAPSULE.DR PO ×2 (12:30→17:24)
[2023-12-13 18:00] VITALS: BP 161/70; PULSE 92; RESP 16; TEMP 36.2; O2SAT 96
[2023-12-13] MEDS: Acetaminophen 325 MG TABLET 650 MG PO (20:52)
[2023-12-13] MEDS: traZODone HCL 25 MG HALFTAB PO (20:53)
[2023-12-14 06:00] VITALS: BP 169/83; PULSE 82; RESP 16; TEMP 36.7; O2SAT 97
[2023-12-14] MEDS: amLODIPine Besylate 2.5 MG TABLET PO (08:28)
[2023-12-14] MEDS: Thiamine HCL 100 MG TABLET PO (08:29)
[2023-12-14] MEDS: Gabapentin 300 MG CAPSULE 600 MG PO ×3 (08:29→20:28)
[2023-12-14] MEDS: Atorvastatin Calcium 40 MG TABLET PO (08:29)
[2023-12-14] MEDS: Omeprazole 20 MG CAPSULE.DR PO (08:29)
[2023-12-14] MEDS: oxyCODONE HCl Immed Release 5 MG TABLET PO ×3 (08:29→20:28)
[2023-12-14] MEDS: Levothyroxine Sodium 100 MCG TABLET PO (08:29)
[2023-12-14] MEDS: DULoxetine HCl 30 MG CAPSULE.DR PO ×2 (08:30→16:17)
[2023-12-14] MEDS: Fluticasone/Vilanterol 100/25 BLST.W.DEV 1 PUFF INHALE (08:31)
--- NOTE | 2023-12-14 11:03 | P.PNPSI_ITS ---
Subjective Subjective Date of Service: 12/14/23 Reason For Visit: Depression Interim History: met with patient. Discussed with Nursing. Eating breakfast. Attending the ADLs. Overall states doing ok and no concerns. Mood okay. No medication concerns. Medication Compliance: Yes Side effects from medications: No Attending Groups: No Review of Systems Acute medical concerns: No Review of Systems Review of Systems No acute changes Mental Status Exam Mental Status Exam Narrative: Appearance: casually dressed; in NAD behavior: mildly irritable Psychomotor: no agitation or retardation noted Speech: mostly clear, normal rate/rhythm/volume, spontaneous TP: mostly linear TC: complaining of pain and wanting medication for it Mood: ok Affect: flat SI: adamantly denies HI: none VH/AH: none Delusions: none Insight/judgment: poor x 2. Memory/cog: alert, oriented x 3. pending MOCA. Diagnostics Vital Signs (24Hr): Vital Signs - 24 hr 12/13/23 18:00 12/14/23 06:00 Temperature 97.2 F 98.1 F Pulse Rate 92 82 Respiratory Rate 16 16 Blood Pressure 161/70 H 169/83 H Pulse Oximetry 96 97 Oxygen Delivery Method Room Air Room Air BMI result Body Mass Index 28.1 Labs 12/10/23 08:58 Medications Medications Current Medications Acetaminophen (Acetaminophen 325 Mg Tablet) 650 mg PO Q6H PRN PRN Reason: Headache/Pain Mild Scale (1-3) Last Admin: 12/13/23 20:52 Dose: 650 mg Al Hydroxide/Mg Hydroxide (Magnesium Hydrox/Alum Hydrox 30 Ml Oral.Susp) 30 ml PO Q6H PRN PRN Reason: Heartburn/Nausea Albuterol Sulfate (Albuterol Sulfate 90 Mcg 8 Gm Inhaler) 2 puff INHALE Q4H PRN PRN Reason: Shortness Of Breath Or Wheezing Last Admin: 12/10/23 20:42 Dose: 2 puff Amlodipine Besylate (Amlodipine Besylate 2.5 Mg Tablet) 2.5 mg PO DAILY [facility]; Protocol Last Admin: 12/14/23 08:28 Dose: 2.5 mg Atorvastatin Calcium (Atorvastatin Calcium 40 Mg Tablet) 40 mg PO DAILY [facility] Last Admin: 12/14/23 08:29 Dose: 40 mg Duloxetine HCl (Duloxetine Hcl 30 Mg Capsule.Dr) 30 mg PO BID@0800,1700 [facility] Last Admin: 12/14/23 08:30 Dose: 30 mg Fluticasone/Vilanterol (Fluticasone/Vilanterol 100/25 Blst.W.Dev) 1 puff INHALE RDAILY [facility] Last Admin: 12/14/23 08:31 Dose: 1 puff Gabapentin (Gabapentin 300 Mg Capsule) 600 mg PO TID [facility] Last Admin: 12/14/23 08:29 Dose: 600 mg Levothyroxine Sodium (Levothyroxine Sodium 100 Mcg Tablet) 100 mcg PO DAILY [facility] Last Admin: 12/14/23 08:29 Dose: 100 mcg Magnesium Hydroxide (Milk Of Magnesia 30 Ml Oral.Susp) 30 ml PO DAILY PRN PRN Reason: Constipation Nicotine Polacrilex (Nicotine Polacrilex 2 Mg Gum) 4 mg BUCCAL Q2H PRN PRN Reason: Nicotine Cravings Olanzapine (Olanzapine 2.5 Mg Tablet) 2.5 mg PO TID PRN PRN Reason: agitation Omeprazole (Omeprazole 20 Mg Capsule.Dr) 20 mg PO DAILY [facility] Last Admin: 12/14/23 08:29 Dose: 20 mg Oxycodone HCl (Oxycodone Hcl Immed Release 5 Mg Tablet) 5 mg PO TID [facility] Last Admin: 12/14/23 08:29 Dose: 5 mg Thiamine HCl (Thiamine Hcl 100 Mg Tablet) 100 mg PO DAILY [facility] Last Admin: 12/14/23 08:29 Dose: 100 mg Trazodone HCl (Trazodone Hcl 25 Mg Halftab) 25 mg PO BEDTIME PRN PRN Reason: Insomnia Last Admin: 12/13/23 20:53 Dose: 25 mg Allergies Allergies Allergy/AdvReac Type Severity Reaction Status Date / Time Seasonal Allergies Allergy Sneezing Verified 12/09/23 22:37 Assessment & Plan Assessment & Plan (1) MDD (major depressive disorder), recurrent episode, moderate: Status: Acute Code(s): F33.1 - Major depressive disorder, recurrent, moderate (2) Alcohol use disorder, severe, dependence: Status: Acute Code(s): F10.20 - Alcohol dependence, uncomplicated Plan Mrs. Reyes is a 83 year-old woman with hx of MDD, alcohol use disorder who was brought via EMS to [facility] ED after daughter found her unresponsive and noted she had pin point pupil. EMS administered narcan at the home with good effect. She was transported to ED. In the ED, CBC with normocytic anemia, no leukocitosys. CMP slighyly low potassium, corrected. No ekg abnormalities or changes. It does not seem like pt was started on a CIWA while in the ED- it has been by now 9 days since last drink. continue thiamine. It appears that while at the other hospital, she was switched from celexa to cymbalta. We discussed risks, benefits and alternative treatment options. Daughter and pt asked about CSS treatment after psychiatric stabilization. We also discussed need to coordinate pain management- despite alcohol use status and harm reduction approach. Pt tolerating the increase in gabapentin from BID to TID on 12/10. 12/11 Continue Treatment Plan: - continue cymbalta 30mg po BID- titrate as appropriate. - increase gabapentin to 600mg po TID- monitor over sedation -schedule oxycodone 5mg po TID. discussion pending with her PCP to discuss termination clerk plan to manage chronic pain. 12/12: no changes 12/13: no changes Reason for continued inpatient stay Substantial Risk for: rapid decompensation Time Spent With Patient Time: Total time managing care of this patient today ____ minutes.
[2023-12-14 20:00] VITALS: BP 143/76; PULSE 97; RESP 16; TEMP 35.3
[2023-12-14] MEDS: traZODone HCL 25 MG HALFTAB PO (20:28)
[2023-12-15 07:45] VITALS: BP 137/69; PULSE 88; RESP 18; TEMP 36.6; O2SAT 96
[2023-12-15] MEDS: amLODIPine Besylate 2.5 MG TABLET PO (08:43)
[2023-12-15] MEDS: Fluticasone/Vilanterol 100/25 BLST.W.DEV 1 PUFF INHALE (08:43)
[2023-12-15] MEDS: Levothyroxine Sodium 100 MCG TABLET PO (08:44)
[2023-12-15] MEDS: DULoxetine HCl 30 MG CAPSULE.DR PO ×2 (08:44→15:54)
[2023-12-15] MEDS: Gabapentin 300 MG CAPSULE 600 MG PO ×3 (08:44→20:10)
[2023-12-15] MEDS: Thiamine HCL 100 MG TABLET PO (08:44)
[2023-12-15] MEDS: Atorvastatin Calcium 40 MG TABLET PO (08:44)
[2023-12-15] MEDS: Omeprazole 20 MG CAPSULE.DR PO (08:44)
[2023-12-15] MEDS: oxyCODONE HCl Immed Release 5 MG TABLET PO ×3 (08:44→20:09)
--- NOTE | 2023-12-15 14:09 | HO.PSYCHPN ---
Subjective Subjective Date of Service: 12/15/23 Reason For Visit: Depression Interim History: resting in bed after lunch. calm, cooperative. states she is tired. mood very good. no complaints or requests. per staff, planning to go home with her daughter. visible, flat, blunted. on oxy 5 TID, daughter negotiating with PCP to continue Rx. Mental Status Exam Mental Status Exam Narrative: Appearance: casually dressed; in NAD behavior: calm, pleasant Psychomotor: no agitation or retardation noted Speech: mostly clear, normal rate/rhythm/volume, spontaneous TP: mostly linear TC: tiredness. no delusions or paranoia noted. Mood: very good Affect: flat SI: none expressed HI: none expressed VH/AH: none expressed Insight/judgment: poor x 2. Memory/cog: alert, oriented x 3. pending MOCA. Diagnostics Vital Signs (24Hr): Vital Signs - 24 hr 12/14/23 20:00 12/15/23 07:45 Temperature 95.5 F L 97.9 F Pulse Rate 97 88 Respiratory Rate 16 18 Blood Pressure 143/76 H 137/69 Pulse Oximetry 96 Oxygen Delivery Method Room Air BMI result Body Mass Index 28.1 Labs 12/10/23 08:58 Medications Medications Current Medications Acetaminophen (Acetaminophen 325 Mg Tablet) 650 mg PO Q6H PRN PRN Reason: Headache/Pain Mild Scale (1-3) Last Admin: 12/13/23 20:52 Dose: 650 mg Al Hydroxide/Mg Hydroxide (Magnesium Hydrox/Alum Hydrox 30 Ml Oral.Susp) 30 ml PO Q6H PRN PRN Reason: Heartburn/Nausea Albuterol Sulfate (Albuterol Sulfate 90 Mcg 8 Gm Inhaler) 2 puff INHALE Q4H PRN PRN Reason: Shortness Of Breath Or Wheezing Last Admin: 12/10/23 20:42 Dose: 2 puff Amlodipine Besylate (Amlodipine Besylate 2.5 Mg Tablet) 2.5 mg PO DAILY [facility]; Protocol Last Admin: 12/15/23 08:43 Dose: 2.5 mg Atorvastatin Calcium (Atorvastatin Calcium 40 Mg Tablet) 40 mg PO DAILY [facility] Last Admin: 12/15/23 08:44 Dose: 40 mg Duloxetine HCl (Duloxetine Hcl 30 Mg Capsule.Dr) 30 mg PO BID@0800,1700 [facility] Last Admin: 12/15/23 08:44 Dose: 30 mg Fluticasone/Vilanterol (Fluticasone/Vilanterol 100/25 Blst.W.Dev) 1 puff INHALE RDAILY [facility] Last Admin: 12/15/23 08:43 Dose: 1 puff Gabapentin (Gabapentin 300 Mg Capsule) 600 mg PO TID [facility] Last Admin: 12/15/23 08:44 Dose: 600 mg Levothyroxine Sodium (Levothyroxine Sodium 100 Mcg Tablet) 100 mcg PO DAILY [facility] Last Admin: 12/15/23 08:44 Dose: 100 mcg Magnesium Hydroxide (Milk Of Magnesia 30 Ml Oral.Susp) 30 ml PO DAILY PRN PRN Reason: Constipation Nicotine Polacrilex (Nicotine Polacrilex 2 Mg Gum) 4 mg BUCCAL Q2H PRN PRN Reason: Nicotine Cravings Olanzapine (Olanzapine 2.5 Mg Tablet) 2.5 mg PO TID PRN PRN Reason: agitation Omeprazole (Omeprazole 20 Mg Capsule.Dr) 20 mg PO DAILY [facility] Last Admin: 12/15/23 08:44 Dose: 20 mg Oxycodone HCl (Oxycodone Hcl Immed Release 5 Mg Tablet) 5 mg PO TID [facility] Last Admin: 12/15/23 08:44 Dose: 5 mg Thiamine HCl (Thiamine Hcl 100 Mg Tablet) 100 mg PO DAILY [facility] Last Admin: 12/15/23 08:44 Dose: 100 mg Trazodone HCl (Trazodone Hcl 25 Mg Halftab) 25 mg PO BEDTIME PRN PRN Reason: Insomnia Last Admin: 12/14/23 20:28 Dose: 25 mg Allergies Allergies Allergy/AdvReac Type Severity Reaction Status Date / Time Seasonal Allergies Allergy Sneezing Verified 12/09/23 22:37 Assessment & Plan Assessment & Plan (1) MDD (major depressive disorder), recurrent episode, moderate: Status: Acute Code(s): F33.1 - Major depressive disorder, recurrent, moderate (2) Alcohol use disorder, severe, dependence: Status: Acute Code(s): F10.20 - Alcohol dependence, uncomplicated Plan Mrs. Reyes is a 83 year-old woman with hx of MDD, alcohol use disorder who was brought via EMS to [facility] ED after daughter found her unresponsive and noted she had pin point pupil. EMS administered narcan at the home with good effect. She was transported to ED. In the ED, CBC with normocytic anemia, no leukocitosys. CMP slighyly low potassium, corrected. No ekg abnormalities or changes. It does not seem like pt was started on a CIWA while in the ED- it has been by now 9 days since last drink. continue thiamine. It appears that while at the other hospital, she was switched from celexa to cymbalta. We discussed risks, benefits and alternative treatment options. Daughter and pt asked about CSS treatment after psychiatric stabilization. We also discussed need to coordinate pain management- despite alcohol use status and harm reduction approach. Pt tolerating the increase in gabapentin from BID to TID on 12/10. 12/11 Continue Treatment Plan: - continue cymbalta 30mg po BID- titrate as appropriate. - increase gabapentin to 600mg po TID- monitor over sedation -schedule oxycodone 5mg po TID. discussion pending with her PCP to discuss snf plan to manage chronic pain. 12/12: no changes 12/13: no changes 12/14: calm, cooperative, reports she is in a good mood. continue current mgmt. planning to discharge to her daughter's house later this week. Reason for continued inpatient stay Substantial Risk for: inability to function and rapid decompensation Time Spent With Patient Time: Total time managing care of this patient today ____ minutes.
[2023-12-15 18:00] VITALS: BP 150/73; PULSE 93; RESP 18; TEMP 36.6; O2SAT 93
[2023-12-16 08:00] VITALS: BP 181/76; PULSE 80; RESP 18; TEMP 36.1; O2SAT 95
[2023-12-16] MEDS: Omeprazole 20 MG CAPSULE.DR PO (08:32)
[2023-12-16] MEDS: DULoxetine HCl 30 MG CAPSULE.DR PO ×2 (08:32→16:38)
[2023-12-16] MEDS: Levothyroxine Sodium 100 MCG TABLET PO (08:32)
[2023-12-16] MEDS: Gabapentin 300 MG CAPSULE 600 MG PO ×3 (08:32→20:55)
[2023-12-16] MEDS: amLODIPine Besylate 2.5 MG TABLET PO (08:33)
[2023-12-16] MEDS: Thiamine HCL 100 MG TABLET PO (08:33)
[2023-12-16] MEDS: oxyCODONE HCl Immed Release 5 MG TABLET PO ×3 (08:33→20:56)
[2023-12-16] MEDS: Atorvastatin Calcium 40 MG TABLET PO (08:33)
[2023-12-16] MEDS: Fluticasone/Vilanterol 100/25 BLST.W.DEV 1 PUFF INHALE (09:07)
--- NOTE | 2023-12-16 16:03 | HO.PSYCHPN ---
Subjective Subjective Date of Service: 12/16/23 Reason For Visit: Depression Interim History: calm, cooperative. up and about the unit today. c/o mild pain today, says the level of pain really waxes and wanes. planning for discharge morning. doesn't know about any contact btwn her daughter and PCP office. per staff, no notable events or behaviors. per ERNESTINA Calvo, PCP office cannot confirm whether or not they will continue opioid pain medication for this patient. an appointment has been made in their office for 01/04. Mental Status Exam Mental Status Exam Narrative: Appearance: casually dressed; in NAD behavior: calm, pleasant Psychomotor: no agitation or retardation noted Speech: clear, normal rate/rhythm/volume, spontaneous TP: linear and logical TC: no delusions or paranoia noted. Mood: euthymic Affect: constricted SI: none expressed HI: none expressed VH/AH: none expressed Insight/judgment: poor x 2. Memory/cog: alert, oriented x 3. pending MOCA. Diagnostics Vital Signs (24Hr): Vital Signs - 24 hr 12/15/23 18:00 12/16/23 08:00 Temperature 97.8 F 97.0 F Pulse Rate 93 80 Respiratory Rate 18 18 Blood Pressure 150/73 H 181/76 H Pulse Oximetry 93 95 Oxygen Delivery Method Room Air Room Air BMI result Body Mass Index 28.1 Labs 12/10/23 08:58 Medications Medications Current Medications Acetaminophen (Acetaminophen 325 Mg Tablet) 650 mg PO Q6H PRN PRN Reason: Headache/Pain Mild Scale (1-3) Last Admin: 12/13/23 20:52 Dose: 650 mg Al Hydroxide/Mg Hydroxide (Magnesium Hydrox/Alum Hydrox 30 Ml Oral.Susp) 30 ml PO Q6H PRN PRN Reason: Heartburn/Nausea Albuterol Sulfate (Albuterol Sulfate 90 Mcg 8 Gm Inhaler) 2 puff INHALE Q4H PRN PRN Reason: Shortness Of Breath Or Wheezing Last Admin: 12/10/23 20:42 Dose: 2 puff Amlodipine Besylate (Amlodipine Besylate 2.5 Mg Tablet) 2.5 mg PO DAILY BLESSING; Protocol Last Admin: 12/16/23 08:33 Dose: 2.5 mg Atorvastatin Calcium (Atorvastatin Calcium 40 Mg Tablet) 40 mg PO DAILY [facility] Last Admin: 12/16/23 08:33 Dose: 40 mg Duloxetine HCl (Duloxetine Hcl 30 Mg Capsule.) 30 mg PO BID@0800,1700 [facility] Last Admin: 12/16/23 08:32 Dose: 30 mg Fluticasone/Vilanterol (Fluticasone/Vilanterol 100/25 Blst.W.Dev) 1 puff INHALE RDAILY [facility] Last Admin: 12/16/23 09:07 Dose: 1 puff Gabapentin (Gabapentin 300 Mg Capsule) 600 mg PO TID [facility] Last Admin: 12/16/23 14:52 Dose: 600 mg Levothyroxine Sodium (Levothyroxine Sodium 100 Mcg Tablet) 100 mcg PO DAILY [facility] Last Admin: 12/16/23 08:32 Dose: 100 mcg Magnesium Hydroxide (Milk Of Magnesia 30 Ml Oral.Susp) 30 ml PO DAILY PRN PRN Reason: Constipation Nicotine Polacrilex (Nicotine Polacrilex 2 Mg Gum) 4 mg BUCCAL Q2H PRN PRN Reason: Nicotine Cravings Olanzapine (Olanzapine 2.5 Mg Tablet) 2.5 mg PO TID PRN PRN Reason: agitation Omeprazole (Omeprazole 20 Mg Capsule.) 20 mg PO DAILY [facility] Last Admin: 12/16/23 08:32 Dose: 20 mg Oxycodone HCl (Oxycodone Hcl Immed Release 5 Mg Tablet) 5 mg PO TID [facility] Last Admin: 12/16/23 14:51 Dose: 5 mg Senna/Docusate Sodium (Sennosides/Docusate Sodium Tablet) 1 tab PO BID [facility] Thiamine HCl (Thiamine Hcl 100 Mg Tablet) 100 mg PO DAILY [facility] Last Admin: 12/16/23 08:33 Dose: 100 mg Trazodone HCl (Trazodone Hcl 25 Mg Halftab) 25 mg PO BEDTIME PRN PRN Reason: Insomnia Last Admin: 12/14/23 20:28 Dose: 25 mg Allergies Allergies Allergy/AdvReac Type Severity Reaction Status Date / Time Seasonal Allergies Allergy Sneezing Verified 12/09/23 22:37 Assessment & Plan Assessment & Plan (1) MDD (major depressive disorder), recurrent episode, moderate: Status: Acute Code(s): F33.1 - Major depressive disorder, recurrent, moderate (2) Alcohol use disorder, severe, dependence: Status: Acute Code(s): F10.20 - Alcohol dependence, uncomplicated Plan Mrs. Reyes is a 83 year-old woman with hx of MDD, alcohol use disorder who was brought via EMS to [facility] ED after daughter found her unresponsive and noted she had pin point pupil. EMS administered narcan at the home with good effect. She was transported to ED. In the ED, CBC with normocytic anemia, no leukocitosys. CMP slighyly low potassium, corrected. No ekg abnormalities or changes. It does not seem like pt was started on a CIWA while in the ED- it has been by now 9 days since last drink. continue thiamine. It appears that while at the other hospital, she was switched from celexa to cymbalta. We discussed risks, benefits and alternative treatment options. Daughter and pt asked about CSS treatment after psychiatric stabilization. We also discussed need to coordinate pain management- despite alcohol use status and harm reduction approach. Pt tolerating the increase in gabapentin from BID to TID on 12/10. 12/11 Continue Treatment Plan: - continue cymbalta 30mg po BID- titrate as appropriate. - increase gabapentin to 600mg po TID- monitor over sedation -schedule oxycodone 5mg po TID. discussion pending with her PCP to discuss exterminator plan to manage chronic pain. 12/12: no changes 12/13: no changes 12/14: calm, cooperative. reports she is in a good mood. continue current mgmt. planning to discharge to her daughter's house later this week. 12/15: calm, denies SI. planning for discharge . will live with daughter and daughter will provide alcohol-free environment and will control and dispense controlled substances. Reason for continued inpatient stay Substantial Risk for: inability to function and rapid decompensation Time Spent With Patient Time: Total time managing care of this patient today __35__ minutes.
[2023-12-16] MEDS: Sennosides/Docusate Sodium TABLET 1 TAB PO ×2 (16:38→20:56)
[2023-12-16 21:00] VITALS: BP 162/86; PULSE 88; RESP 18; TEMP 36.2; O2SAT 96
[2023-12-17 07:30] VITALS: BP 166/74; PULSE 93; RESP 18; TEMP 36.2; O2SAT 96
[2023-12-17] MEDS: oxyCODONE HCl Immed Release 5 MG TABLET PO ×3 (08:40→23:24)
[2023-12-17] MEDS: Levothyroxine Sodium 100 MCG TABLET PO (08:40)
[2023-12-17] MEDS: Omeprazole 20 MG CAPSULE.DR PO (08:40)
[2023-12-17] MEDS: Atorvastatin Calcium 40 MG TABLET PO (08:40)
[2023-12-17] MEDS: DULoxetine HCl 30 MG CAPSULE.DR PO ×2 (08:40→16:49)
[2023-12-17] MEDS: Thiamine HCL 100 MG TABLET PO (08:40)
[2023-12-17] MEDS: Gabapentin 300 MG CAPSULE 600 MG PO ×3 (08:41→23:23)
[2023-12-17] MEDS: amLODIPine Besylate 2.5 MG TABLET PO (08:41)
[2023-12-17] MEDS: Sennosides/Docusate Sodium TABLET 1 TAB PO ×2 (08:41→23:23)
[2023-12-17] MEDS: Fluticasone/Vilanterol 100/25 BLST.W.DEV 1 PUFF INHALE (08:43)
[2023-12-17] MEDS: polyethylene glycoL 3350 17 GM POWD.PACK PO (12:42)
--- NOTE | 2023-12-17 13:26 | P.DS_ITS ---
DS: Providers Provider Date of Service: 12/17/23 Date of admission: 12/09/23 21:21 Primary care physician: Unknown Physician Consults: 12/09/23 22:46 Consult to Hospitalist Routine Comment: Consulting Provider: Hospitalist Reason For Exam: admission physical DS: Diagnosis Discharge Diagnosis (1) MDD (major depressive disorder), recurrent episode, moderate: Status: Acute (2) Alcohol use disorder, severe, dependence: Status: Acute DS: Medications Discharge Medications Home Medications: Previous Rx's ?Medication ?Instructions ?Recorded albuterol sulfate 90 mcg/actuation 2 puff inhalation Q4-5H PRN 12/17/23 aerosol inhaler Shortness Of Breath Or Wheezing 30 days #1 inhaler amlodipine 2.5 mg tablet 2.5 mg PO DAILY 30 days #30 tabs 12/17/23 atorvastatin 40 mg tablet 40 mg PO DAILY 30 days #30 tabs 12/17/23 duloxetine 30 mg capsule,delayed 30 mg PO BID 30 days #60 caps 12/17/23 release fluticasone furoate 100 1 ea inhalation DAILY 30 days #60 12/17/23 mcg-vilanterol 25 mcg/dose ea inhalation powder (Breo Ellipta) gabapentin 300 mg capsule 600 mg (2 x 300 mg) PO TID 30 days 12/17/23 #180 caps levothyroxine 100 mcg tablet 100 mcg PO QAM 30 days #30 tabs 12/17/23 omeprazole 20 mg capsule,delayed 20 mg PO DAILY 30 days #30 caps 12/17/23 release oxycodone 5 mg tablet 5 mg PO TID 20 days #60 tabs 12/17/23 pantoprazole 40 mg tablet,delayed 40 mg PO DAILY 30 days #30 tabs 12/17/23 release sennosides 8.6 mg-docusate sodium 1 tab PO BID 30 days #60 tabs 12/17/23 50 mg tablet (Senna Plus) thiamine mononitrate (vit B1) 100 100 mg PO DAILY 30 days #30 tabs 12/17/23 mg tablet trazodone 50 mg tablet 25 mg (1/2 x 50 mg) PO BEDTIME PRN 12/17/23 Insomnia 30 days #15 tabs Mental Status Exam Mental Status Exam Narrative: Appearance: casually dressed; in NAD behavior: calm, pleasant Psychomotor: no agitation or retardation noted Speech: clear, normal rate/rhythm/volume, spontaneous TP: linear and logical TC: no delusions or paranoia noted. Mood: fine Affect: flexible, full-range SI/SIBI: none HI: none VH/AH: none Insight/judgment: intact x 2. Memory/cog: alert, oriented x 3. DS: Summary Hospital Course Hospital Course: per 12/09 admission note: Mrs. Reyes is a 83 year-old woman with hx of MDD, alcohol use disorder who was brought via EMS to [facility] ED on 12/02/23 after daughter found her non responsive and noticed pin point pupils. Daughter Maryjane called ambulance and EMS on arrival administered narcan. Pt also reported daily alcohol use for several years. It does not appear that she was started on CIWA. In the ED, pt reported that she had intentional OD on oxycodone, about 20 tablets as suicide attempt in the context of chronic pain and feeling like she did not want to live like this anymore. CBC showed normocytic anemia, CMP without electrolyte imbalances, BUN 14, Cr. 0.8, slightly elevated CK 363. Suspected she had aspiration pneumonia on chest XR-although she was not started on antibiotics. EKG on 12/[address] abnormality, no significant changes from previous EKGs- per ED documentation. On the unit, pt presented with visible back pain affecting her ability to ambulate as well as sit in chair. She also presents as somewhat guarded and irritable. She reports she feels ashamed and embarrassed about suicide attempt. She reports hse has never had suicidal ideation in her life. She reports she only contemplated OD with oxycodone the day she had the OD. She reports she was ruminating about it all day long until she decided later at night to take about 20 tablets of oxycodone. Her daughter who lives with her found her and called EMS. Pt reports PCP has been prescribing antidepressant. She denies feeling depressed lately only in setting of chronic back pain and arthritis. Pt denies hx of VH/AH or delusions. Collateral information from daughter, Maryjane, who reports pt has been using alcohol, mostly vodka for several decades with little to no periods of sobriety. Daughter reports in the past, when pt was able to work, she was functional alcoholic. Daughter reports Mrs. Reyes has about 3-4 drinks of vodka daily. Daughter reports recently she was told by pain clinic that they were stopping cortisone injections as they were not helping as much. Physical therapy was also stopped due to sense that benefit was minimal. Daughter reports that the day the pt had intentional OD, she had telehealth appointment with her PCP who told her that he will not continue prescribing opioid medications due to pt's ongoing al cohol use disorder. In was in this setting that, pt later decided to OD on oxycodone. Past Psychiatric History: Inpt: none in the past OP: none Past medication trials: celexa. Hx of suicide attempts: denies Medical Evaluation Reviewed: Yes PENDING SALE TO [facility] Medical History (Updated 12/11/23 @ 11:01 by Shahnaz Goldstein) GERD (gastroesophageal reflux disease) Arthritis Hypothyroidism HLD (hyperlipidemia) Asthma HTN (hypertension) Family History: none Social History: Pt lives with daughter. retired. . Substance History: alcohol use daily 4-6 drinks of vodka for several years Trauma History: not disclosed Precis: Mrs. Reyes is a 83 year-old woman with hx of MDD, alcohol use disorder who was brought via EMS to [facility] ED after daughter found her unresponsive and noted she had pin point pupil. EMS administered narcan at the home with good effect. She was transported to ED. In the ED, CBC with normocytic anemia, no leukocitosys. CMP slighyly low potassium, corrected. No ekg abnormalities or changes. It does not seem like pt was started on a CIWA while in the ED- it has been by now 9 days since last drink. continue thiamine. It appears that while at the other hospital, she was switched from celexa to cymbalta. We discussed risks, benefits and alternative treatment options. Daughter and pt asked about CSS treatment after psychiatric stabilization. We also discussed need to coordinate pain management- despite alcohol use status and harm reduction approach. Pt tolerating the increase in gabapentin from BID to TID on 12/10. 12/11 Continue Treatment Plan: - continue cymbalta 30mg po BID- titrate as appropriate. - increase gabapentin to 600mg po TID- monitor over sedation -schedule oxycodone 5mg po TID. discussion pending with her PCP to discuss detention plan to manage chronic pain. 12/12: no changes 12/13: no changes 12/14: calm, cooperative. reports she is in a good mood. continue current mgmt. planning to discharge to her daughter's house later this week. 12/15: calm, denies SI. planning for discharge . will live with daughter and daughter will provide alcohol-free environment and will control and dispense controlled substances. 12/16: stable, planning for discharge tomorrow. 12/17: discharged as per plan. will F/U with PCP re pain medication, given script for enough to get her through her PCP appointment. Time Spent with Patient Time attestation: Total time managing care of this patient today __35__ minutes. Discharge Plan Discharge Anticipated Discharge Date/Time: 12/18/23 11:00 Patient Disposition: Home, Self-Care Discharge Diagnosis: Major Depressive Disorder, Moderate Alcohol Use Disorder Chronic Pain Referrals: PCP Hospital Follow-up: Dr. Wall ([facility]) [Other] - 12/19/23 11:30 am (Appointment is in person at the office and is for a hospital discharge follow- up. At this time please ask the doctor to send referral for physical therapy, with a signed order including the diagnosis physical therapy is meant to treat. PT options: [facility]: Booking in mid-January; fax order to [phone] [facility]: Booking in mid-February; fax signed physician order with diagnosis, medication list and office visit note to [phone]. ) PCP: Dr. Win ([facility]) [Other] - 01/05/24 12:00 pm (Appointment is in person, at the office. At this time, you will have to discuss with the doctor whether he will re-consider continuing Oxycodone prescription, if not please discuss alternative pain management options Please also ask about continuing her antidepressant medication; if any issues with this, can contact [facility] ) Physician,Unknown J [Primary Care Provider] - 1 Week Discharge Medications: New gabapentin 300 mg Capsule 600 mg PO TID 30 Days Qty: 180 0RF oxycodone 5 mg Tablet 5 mg PO TID 20 Days Qty: 60 0RF Rx Instructions: Partial Fill upon patient request. duloxetine 30 mg Capsule,Delayed Release(Dr/Ec) 30 mg PO BID 30 Days Qty: 60 0RF trazodone 50 mg tablet 25 mg PO BEDTIME PRN (Reason: Insomnia) 30 Days Qty: 15 0RF sennosides-docusate sodium [Senna Plus] 8.6-50 mg Tablet 1 tab PO BID 30 Days Qty: 60 0RF thiamine mononitrate (vit B1) 100 mg Tablet 100 mg PO DAILY 30 Days Qty: 30 0RF Continued atorvastatin 40 mg tablet 40 mg PO DAILY 30 Days Qty: 30 0RF amlodipine 2.5 mg tablet 2.5 mg PO DAILY 30 Days Qty: 30 0RF levothyroxine 100 mcg tablet 100 mcg PO QAM 30 Days Qty: 30 0RF pantoprazole 40 mg tablet,delayed release (DR/EC) 40 mg PO DAILY 30 Days Qty: 30 0RF omeprazole 20 mg capsule,delayed release(DR/EC) 20 mg PO DAILY 30 Days Qty: 30 0RF albuterol sulfate 90 mcg/actuation HFA aerosol inhaler 2 puff inhalation Q4-5H PRN (Reason: Shortness Of Breath Or Wheezing) 30 Days Qty: 1 0RF fluticasone furoate-vilanterol [Breo Ellipta] 100-25 mcg/dose blister with device 1 ea inhalation DAILY 30 Days Qty: 60 0RF Discontinued tramadol 50 mg tablet 50 mg PO Q6H PRN (Reason: pain) citalopram 20 mg tablet 20 mg PO QAM gabapentin 300 mg capsule 600 mg PO BID ondansetron 4 mg tablet,disintegrating 4 mg PO Q8H PRN (Reason: nausea) oxycodone 5 mg tablet 5 mg PO Q6H PRN (Reason: pain) Discharge Orders: Discharge Order (Routine); Ordered 12/18/23 Ordered By: Quan Lira Diet: Advance to usual diet Activity on Discharge: As tolerated Stand Alone Forms: Patient Portal Discharge page, Community Support Print Language: Malawian Care Plan Goals: remain safe, stable, and sober in the outpatient treatment setting. Health Concerns: Hypertension Hypercholesterolemia COPD Chronic Pain Hypothyroidism GERD Plan of Treatment: take medications as prescribed, attend appointments as scheduled. Assessment: not at imminent risk of harm to self or others. Discharge Date/Time: 12/18/23 11:20
[2023-12-17 18:00] VITALS: BP 163/79; PULSE 111; RESP 20; TEMP 36.2; O2SAT 94
[2023-12-17] MEDS: Ondansetron ODT 4 MG TAB.RAPDIS TRANSLINGU (20:25)
[2023-12-18 08:00] VITALS: BP 144/66; PULSE 91; RESP 18; TEMP 36.6; O2SAT 94
[2023-12-18] MEDS: Levothyroxine Sodium 100 MCG TABLET PO (08:55)
[2023-12-18] MEDS: Omeprazole 20 MG CAPSULE.DR PO (08:55)
[2023-12-18] MEDS: oxyCODONE HCl Immed Release 5 MG TABLET PO (08:56)
[2023-12-18] MEDS: Thiamine HCL 100 MG TABLET PO (08:57)
[2023-12-18] MEDS: Atorvastatin Calcium 40 MG TABLET PO (08:57)
[2023-12-18] MEDS: Sennosides/Docusate Sodium TABLET 1 TAB PO (08:57)
[2023-12-18] MEDS: DULoxetine HCl 30 MG CAPSULE.DR PO (08:57)
[2023-12-18] MEDS: Gabapentin 300 MG CAPSULE 600 MG PO (08:57)
[2023-12-18] MEDS: amLODIPine Besylate 2.5 MG TABLET PO (08:57)
[2023-12-18] MEDS: Fluticasone/Vilanterol 100/25 BLST.W.DEV 1 PUFF INHALE (08:58)
--- NOTE | 2023-12-18 11:35 | PC.NURSE ---
Pt aware of discharge and reported readiness for discharge. D/C instructions, medications, f/u appointments given to the patient and her daughter Aylin. Pt left the unit at 11:20 accompanied by her daughter Aylin. Took her belongings with her.
== END 2023-12-18 11:20 | disposition home or self-care (01) | DRG 885 ==
PROVIDERS: Psychiatry & Neurology Psychiatry; Admitting Provider Social Worker; Visit Provider Social Worker
DX: F33.1 Major depressive disorder, recurrent, moderate (principal); R45.851 Suicidal ideations; E03.9 Hypothyroidism, unspecified; J45.20 Mild intermittent asthma, uncomplicated; I10 Essential (primary) hypertension; M19.90 Unspecified osteoarthritis, unspecified site; G89.29 Other chronic pain; K21.9 Gastro-esophageal reflux disease without esophagitis; F10.20 Alcohol dependence, uncomplicated; E78.5 Hyperlipidemia, unspecified; Z79.51 Long term (current) use of inhaled steroids; Z79.890 Hormone replacement therapy; Z79.899 Other long term (current) drug therapy
CPT/HCPCS: 36415; 74018; 80053; 80061; 83036

== ENCOUNTER → 2023-12-09 21:21 | Outpatient (BNV) | payer MEDICARE, SELFPAY | PROVIDERS: Admitting Provider Social Worker; Visit Provider Social Worker | DX: F33.1 Major depressive disorder, recurrent, moderate (principal); F10.20 Alcohol dependence, uncomplicated | CPT/HCPCS: 90792; 99231; 99232; 99239 ==

== ENCOUNTER → 2023-12-09 21:21 | Outpatient (BNV) | payer MEDICARE, SELFPAY | PROVIDERS: Admitting Provider Social Worker; Visit Provider Student in an Organized Health Care Education/Training Program | DX: Z02.2 Encounter for examination for admission to residential institution (principal) | CPT/HCPCS: 99429 ==